=== PATIENT | female | born 1940 | race Caucasian/White ===

== ENCOUNTER 2022-01-16 13:33 | Outpatient (CLI) | payer MEDICARE, BC | END 2022-01-16 13:34 | disposition home or self-care (01) | LOC: CSHULT 13:33 | PROVIDERS: ATTEND Internal Medicine Hematology & Oncology | DX: R60.0 Localized edema (principal) ==

== ENCOUNTER 2022-07-22 08:42 | Outpatient (CLI) | payer MEDICARE, BC | END 2022-07-22 08:43 | disposition home or self-care (01) | LOC: CSHMAMMO 08:42 | PROVIDERS: ATTEND Internal Medicine Hematology & Oncology | DX: Z12.31 Encounter for screening mammogram for malignant neoplasm of breast (principal); Z90.12 Acquired absence of left breast and nipple; Z85.3 Personal history of malignant neoplasm of breast | CPT/HCPCS: 77063; 77067 ==

== ENCOUNTER 2024-03-02 14:30 | Outpatient (CLI) | payer MEDICARE | END 2024-03-02 14:31 | disposition home or self-care (01) | LOC: CSHMAMMO 14:30 | PROVIDERS: ATTEND Internal Medicine Hematology & Oncology | DX: Z12.31 Encounter for screening mammogram for malignant neoplasm of breast (principal); Z90.12 Acquired absence of left breast and nipple | CPT/HCPCS: 77063; 77067 ==

== ENCOUNTER 2025-03-24 11:50 | Outpatient (CLI) | payer MEDICARE | END 2025-03-24 11:51 | disposition home or self-care (01) | LOC: CSHMAMMO 11:50 | PROVIDERS: ATTEND Internal Medicine Hematology & Oncology | DX: Z12.31 Encounter for screening mammogram for malignant neoplasm of breast (principal); Z90.12 Acquired absence of left breast and nipple; Z85.3 Personal history of malignant neoplasm of breast | CPT/HCPCS: 77063; 77067 ==